=== PATIENT | female | born 1980 | race Caucasian/White ===

== ENCOUNTER 2021-09-24 09:33 | Outpatient (RCR) | payer BC ==
[~2021-09-24 09:33] MED LIST: ACHD5005 PO; ADV1DS; ALB6.8IN; DOCU100C37 PO; FERR325T18 PO; IBUP-1773 PO; LRT10T; ORTHOTRICYCLINE
== END 2021-10-11 ==
LOC: ONC 09:33
PROVIDERS: ATTEND Radiology Radiation Oncology
DX: C20 Malignant neoplasm of rectum (principal); J45.909 Unspecified asthma, uncomplicated
CPT/HCPCS: 99204

== ENCOUNTER 2021-11-09 14:34 | Outpatient (RCR) | payer BC | END 2021-11-10 | disposition home or self-care (01) | LOC: ONC 14:34 | PROVIDERS: ATTEND Radiology Radiation Oncology | DX: Z51.0 Encounter for antineoplastic radiation therapy (principal); C20 Malignant neoplasm of rectum | CPT/HCPCS: 77300; 77301; 77334; 77336; 77338; 77386; 77470 ==

== ENCOUNTER 2021-12-06 10:45 | Outpatient (RCR) | payer BC | END 2021-12-11 | disposition home or self-care (01) | LOC: ONC 10:45 | PROVIDERS: ATTEND Radiology Radiation Oncology | DX: Z51.0 Encounter for antineoplastic radiation therapy (principal); C20 Malignant neoplasm of rectum | CPT/HCPCS: 77336; 77386 ==

== ENCOUNTER 2022-01-03 09:20 | Outpatient (RCR) | payer BC | END 2022-01-10 | LOC: ONC 09:20 | PROVIDERS: ATTEND Radiology Radiation Oncology | DX: C20 Malignant neoplasm of rectum (principal) | CPT/HCPCS: 99213 ==

== ENCOUNTER 2022-05-02 09:17 | Outpatient (RCR) | payer BC | END 2022-05-13 | disposition home or self-care (01) | LOC: ONC 09:17 | PROVIDERS: ATTEND Radiology Radiation Oncology | DX: C20 Malignant neoplasm of rectum (principal) | CPT/HCPCS: 99213 ==

== ENCOUNTER 2022-05-02 10:48 | Outpatient (RCR) | payer BC ==
[2022-05-02 10:52] VITALS: BP 110/77
== END 2022-05-13 | disposition home or self-care (01) ==
LOC: SDC 10:48
PROVIDERS: ATTEND Internal Medicine
DX: Z45.2 Encounter for adjustment and management of vascular access device (principal)
CPT/HCPCS: 96523

== ENCOUNTER → 2022-05-02 | Outpatient (CLI) | payer BC ==
--- NOTE | 2022-05-02 13:40 | Diagnostic Imaging Report ---
Indication: Routine screening. No prior mammograms are available for comparison. This is a baseline study. 2-D and 3-D bilateral screening mammography was performed with CAD. Both breasts are heterogeneously dense, limiting the sensitivity of mammography. No mass or malignant-appearing microcalcifications are seen. Axillae are unremarkable. IMPRESSION: BI-RADS Category 1 No mammographic features suspicious for malignancy are identified. ACR BI-RADS Category 1: Negative. Result letter will be mailed to the patient. Note: At least 10% of breast cancer is not imaged by mammography. Dictated by: Dictated on workstation # [id number]
== END ==
LOC: RAD 10:33
PROVIDERS: ATTEND Internal Medicine
DX: Z12.31 Encounter for screening mammogram for malignant neoplasm of breast (principal)
CPT/HCPCS: 77063; 77067

== ENCOUNTER 2022-07-30 08:44 | Outpatient (RCR) | payer BC ==
[~2022-07-30] VITALS: Ht 167 cm; Wt 72.7 kg
[2022-07-30 09:05] VITALS: BP 133/103
== END 2022-08-13 | disposition home or self-care (01) ==
LOC: SDC 08:44
PROVIDERS: ATTEND Internal Medicine
DX: Z45.2 Encounter for adjustment and management of vascular access device (principal)
CPT/HCPCS: 96523